=== PATIENT | female | born 1965 | race Caucasian/White ===

== ENCOUNTER → 2017-11-04 13:15 | Outpatient (CLI) | payer BC, SELFPAY ==
--- NOTE | 2017-11-04 13:22 | XR_ITS ---
XR chest 2V HISTORY: ITS.REASON: POSITIVE PPD ORDERING PHYSICIAN: Arley Espinosa PATIENT AGE: 51 years COMPARISON: 12/11/2014 FINDINGS: The cardiomediastinal silhouette and pulmonary vascularity are within normal limits. The lungs are clear without infiltrates, suspicious nodules, or pleural effusions. Calcification noted in the right breast/axillary region as before. Minimal nodularity along the left heart border and may be due to overlapping vessel or summation artifact and may be confirmed with follow-up. No acute bony abnormalities. IMPRESSION: No acute finding. No evidence of active granulomatous process
== END ==
PROVIDERS: PCP Nurse Practitioner Family; Visit Provider Nurse Practitioner Family
DX: R76.11 Nonspecific reaction to tuberculin skin test without active tuberculosis (principal)
CPT/HCPCS: 71046

== ENCOUNTER → 2019-11-27 09:38 | Outpatient (CLI) | payer OTHER, SELFPAY ==
--- NOTE | 2019-11-27 09:50 | XR_ITS ---
PROCEDURE: XR SHOULDER LT MIN 2V CLINICAL INDICATION: M25.512 COMPARISON: No exams were available for comparison FINDINGS: IMPRESSION: No acute findings. Dictated by: Aubrey Pena 11/27/2019 13:37 Electronically signed by Aubrey Pena in [facility] 11/27/2019 13:37
--- NOTE | 2019-11-27 09:50 | XR_ITS ---
PROCEDURE: XR FOREARM LT 2V CLINICAL INDICATION: M79.632 COMPARISON: No exams were available for comparison FINDINGS: No fracture or dislocation. No lytic or blastic change. There is normal mineralization. The joint spaces are well-preserved. No significant degenerative/arthritic changes. No erosive changes evident. Other findings:None. IMPRESSION: No acute findings. Dictated by: Aubrey Pena 11/27/2019 13:36 Electronically signed by Aubrey Pena in [place] 11/27/2019 13:36
== END ==
PROVIDERS: PCP Family Medicine; Visit Provider Family Medicine
DX: M79.632 Pain in left forearm (principal); M25.512 Pain in left shoulder
CPT/HCPCS: 73030; 73090